=== PATIENT | female | born 1975 | race Two or more races ===

== ENCOUNTER 2017-04-30 08:38 | Emergency (ER) | payer OTHER ==
[~2017-04-30] VITALS: Ht 160 cm; Wt 68.0 kg
[2017-04-30] MEDS ORDERED: RANITIDINE HCL150 M1 (09:32)
[2017-04-30] MEDS ORDERED: SYNTHROID112 MCG (09:32)
[2017-04-30] MEDS ORDERED: OMEPRAZOLE20 MG (09:33)
[2017-04-30] MEDS ORDERED: CYCLOBENZAPRINE10 MG (09:34)
[2017-04-30] MEDS ORDERED: GABAPENTIN800 MG (09:34)
[2017-04-30] MEDS ORDERED: LISINOPRIL20 MG (09:34)
[2017-04-30] MEDS ORDERED: VITAMINA D PO (09:39)
== END 2017-05-01 09:54 | disposition home or self-care (01) ==
LOC: ER 08:38
DX: K29.70 Gastritis, unspecified, without bleeding (principal)